=== PATIENT | female | born 1995 | race Caucasian/White ===

== ENCOUNTER 2019-11-24 13:06 | Inpatient (IN) ==
[2019-11-24] MEDS: RINGER'S SOLUTION,LACTATED 1,000 ML IV ONE (19:14)
[2019-11-24] MEDS ORDERED: LIDOCAINE HCL 50 ML VIAL PERI PRN (19:46)
[2019-11-24] MEDS ORDERED: RINGER'S SOLUTION,LACTATED 1,000 ML IV PRN (19:46)
[2019-11-24] MEDS ORDERED: OXYTOCIN/DEXTROSE 5%-WATER 30 UNITS/500 ML BAG IV ONE (19:46)
[2019-11-24] MEDS ORDERED: ONDANSETRON 4 MG TAB.RAPDIS PO PRN (19:46)
[2019-11-24] MEDS ORDERED: BUTORPHANOL TARTRATE 2 MG/ML VIAL IV PRN ×2 (19:46)
[2019-11-24] MEDS: MISOPROSTOL 100 MCG TABLET VG PRN (20:44)
[2019-11-24 21:31] LABS: Cocaine Ur Negative (NEGATIVE); Urine Barbiturate Negative (NEGATIVE); Urine Benzodiazepines Negative (NEGATIVE); Urine Opiates Negative (NEGATIVE); Urine PCP Negative (NEGATIVE); Urine THC Positive (NEGATIVE)
--- NOTE | 2019-11-25 08:38 | HP ---
Chief Complaint - Chief Complaint Date of Service: 11/25/19 Time of Service: 08:37 Chief Complaint: Patient presents for elective IOL and has no complaints History of Present Illness: 24 year old Medical History (Last Reviewed 11/25/19 @ 13:12 by Monik Machado MD) Acquired hypertrophic pyloric stenosis Onset Date: Unknown UTI (urinary tract infection) Onset Date: Unknown Surgical History: Surgical History (Last Reviewed 11/25/19 @ 13:12 by Monik Machado MD) H/O hand surgery Onset Date: ~2011 broken hand S/P pyloromyotomy, follow-up exam Onset Date: Unknown - surgery for pyloric stenosis Family History: Family History (Last Reviewed 11/25/19 @ 13:12 by Monik Machado MD) Mother Diabetes Primary stomach malignancy Hypertension Father Alive and well Social History: (Last Reviewed 11/25/19 @ 13:12 by Monik Machado MD) Social History: Marital status: Single current occupational status: employed current occupation: information security manager Highest education level completed: high school graduate Service: No Tobacco: Smoking Status: Current every day smoker tobacco type: cigarettes Smoking cigarettes per day: 5 Alcohol: alcohol intake: never Substance Use: substance use type: does not use Dietary Habits: caffeine: Yes caffeine comment: daily Type: carbonated beverages Exercise: Physical activity type: other frequency: 3-4 times per week Review Of Systems (GEN) - Review of Systems Generalized/Overall Review: Present: No Symptoms Reported Misc: All systems neg except as marked Immunizations: IMMUNIZATION HX Immunizations Up to Date Yes History of Influenza Vaccine Yes Hx Pneumococcal Vaccination No Allergies/Adverse Reactions: Allergies Allergy/AdvReac Type Severity Reaction Status Date / Time No Known Drug Allergies Allergy Severe Verified 11/24/19 20:00 poison mary extract Allergy Severe rash, Verified 11/24/19 20:00 [Poison Mary Extract] itching Home Medications: HOME MEDICATIONS prenat.vits,lorena,[id number] 1 tab PO DAILY 04/17/19 [Last Taken Unknown] Exam - Exam Vital Signs: Vital Signs - Last Taken Temp 36.7 C 11/24/19 18:45 Pulse 96 11/24/19 18:45 Resp 16 11/24/19 18:45 BP 119/64 11/24/19 18:45 Pulse Ox 97 11/24/19 18:45 Constitutional: Present: Alert, Oriented x3, Cooperative, No distress ENT Exam: Present: hearing grossly normal Neck: Present: normal inspection Back Exam: Present: normal inspection Respiratory: Present: lungs clear, normal breath sounds, no respiratory distress Cardiovascular/Chest: Present: regular rate, rhythm Abdomen: Present: soft, nontender, nondistended /Rectal: Present: Other - fingertip Extremity: Present: non-tender, no calf tenderness Skin Exam: Present: normal color, warm/dry, no cyanosis Neurologic: Present: alert, normal mood/affect, oriented x 3 Appearance: Present: appropriate appearance Eye contact: Present: cooperative, good eye contact, normal speech Thoughts: Present: normal thought pattern Diagnostic Studies: Abnormal Lab Results 11/24/19 Range/Units 20:45 Urine Marijuana (THC) Positive H (NEGATIVE) Laboratory Results Urine Opiates Screen Negative (NEGATIVE) 11/24/19 20:45 Barbiturate Screen Negative (NEGATIVE) 11/24/19 20:45 Ur Phencyclidine Scrn Negative (NEGATIVE) 11/24/19 20:45 Urine Amphetamine Negative (NEGATIVE) 11/24/19 20:45 U Benzodiazepines Scrn Negative (NEGATIVE) 11/24/19 20:45 Urine Cocaine Screen Negative (NEGATIVE) 11/24/19 20:45 Urine Marijuana (THC) Positive (NEGATIVE) H 11/24/19 20:45 Blood Type A Positive 11/24/19 19:55 Antibody Screen Negative 11/24/19 19:55 Assessment/Plan - Narrative Narrative: 24 year old year old at 39w 1d Elective IOL: the patient received one dose of misprostol and on examination this morning the patient was fingertip. Pitocin was at 10 milliunits. Pitocin turned off due to cervix not being favorable. A second dose of cytotec was given. FHT was reactive, moderate variability, normal baseline, no decelerations CF carrier: FOB tested and negative GBS negative: prophylaxis not indicated THC use in : positive on admission to L&D Smoker
[2019-11-25] MEDS ORDERED: MISOPROSTOL 100 MCG TABLET VG SCH (09:30)
[2019-11-25] MEDS: MISOPROSTOL 100 MCG TABLET VG PRN (09:41)
--- NOTE | 2019-11-25 16:52 | PN ---
Progess Note - Interim Date: 11/25/19 Time: 16:51 Narrative: 11/25/19 16:51 The patient reports she is starting to feel her contractions more cvx 2/60/-3 AROM for clear fluid FHT normal baseline, accelerations (reactive), moderate variability, no decelerations Desires epidural ctx q 1-3 minutes Epidural PRN
[2019-11-25] MEDS ORDERED: ONDANSETRON HCL/PF 2 MG/ML VIAL IV PRN (17:32)
[2019-11-25] MEDS ORDERED: BUPIVACAINE HCL/0.9 % NACL/PF 250 ML EP PRN (17:32)
[2019-11-25] MEDS ORDERED: NALOXONE HCL 1 MG/1 ML SYRG IV PRN (17:32)
[2019-11-25] MEDS ORDERED: BUPIVACAINE HCL/PF 30 ML VIAL EP SCH (17:45)
[2019-11-25] MEDS: RINGER'S SOLUTION,LACTATED 1,000 ML IV ONE (18:56)
--- NOTE | 2019-11-25 19:25 | ANES ---
Anesthesia Pre Procedure Eval Vitals/Labs: Last Vital Signs Temp 36.7 C 11/24/19 18:45 Pulse 96 11/24/19 18:45 Resp 16 11/24/19 18:45 BP 119/64 11/24/19 18:45 Pulse Ox 97 11/24/19 18:45 HOME MEDICATIONS prenat.vits,lorena,[id number] 1 tab PO DAILY 04/17/19 [Last Taken Unknown] Allergies/Adverse Reactions: Allergies Allergy/AdvReac Type Severity Reaction Status Date / Time No Known Drug Allergies Allergy Severe Verified 11/24/19 20:00 poison mary extract Allergy Severe rash, Verified 11/24/19 20:00 [Poison Mary Extract] itching - Planned Procedure Planned Procedure: Labor Epidural Medication List Reviewed:: Yes Allergies Verified: Yes Medical History (Last Reviewed 11/25/19 @ 19:25 by Ahmet Gentile CRNA) Acquired hypertrophic pyloric stenosis Onset Date: Unknown UTI (urinary tract infection) Onset Date: Unknown Surgical History (Last Reviewed 11/25/19 @ 19:25 by Ahmet Gentile CRNA) H/O hand surgery Onset Date: ~2011 broken hand S/P pyloromyotomy, follow-up exam Onset Date: Unknown - surgery for pyloric stenosis Family History (Last Reviewed 11/25/19 @ 19:25 by Ahmet Gentile CRNA) Mother Diabetes Primary stomach malignancy Hypertension Father Alive and well - Cardiovascular Tolerate Activity: Good Heart Sounds: S1 & S2, Regular - Anesthesia Assessment and Plan ASA Class: PS, II Anesthesia Type Plan: Epidural
--- NOTE | 2019-11-25 19:46 | ANES ---
Post Anesthesia Assessment - Vital Signs Vitals: Last Vital Signs Temp 36.7 C 11/24/19 18:45 Pulse 96 11/24/19 18:45 Resp 16 11/24/19 18:45 BP 119/64 11/24/19 18:45 Pulse Ox 97 11/24/19 18:45 Airway Patency: Normal - Mental Status Level Of Consciousness: Awake - N/V Assessment Nausea/Vomiting Presence: None Dehydration:: No
--- NOTE | 2019-11-25 19:46 | ANES ---
Anesthesia Procedure Note Procedure Note: ANESTHESIA PROCEDURE NOTE Date of Procedure: 11/25/2019. Time of procedure: 1929. Performed by: Ahmet Gentile CRNA Internet Ecommerce Specialist: None. Preprocedure diagnosis: Active labor. Post procedure diagnosis: Same. Procedure: Insertion of labor epidural. Indications: The patient is a 24-year-old female in active labor requesting labor epidural for pain management. Findings: See below. Details of the procedure: The patient was placed in a sitting position. DuraPrep as well as Betadine swabs X3 was applied to the patient's back. Patient was then draped in a sterile fashion. Lidocaine 1% was infiltrated to the skin and subcutaneous tissues at the level of the L3-4 interspace. The epidural space was identified using a 18-gauge Tuohy needle with [id number] technique. Epidural catheter was inserted to a depth of 10 centimeters at skin. Negative test dose was elicited using 3 mL of 1.5% preservative-free lidocaine plus epinephrine 1 200,000. The epidural catheter was then taped and secured in place. A loading dose of 8 mL of 0.25% preservative-free bupivacaine was administered to the epidural catheter after negative aspiration for blood and CSF. EBL: Minimal. Fluids: N/A. Specimen: N/A. Post procedure condition: The patient tolerated the procedure well. No complications were noted. Thank you for this consultation. Ahmet Gentile CRNA
[2019-11-26] MEDS ORDERED: SENNOSIDES 8.6 MG TABLET PO PRN (00:11)
[2019-11-26] MEDS ORDERED: BENZOCAINE/MENTHOL 81 SPRAY CAN TP PRN (00:11)
[2019-11-26] MEDS ORDERED: HYDROCORTISONE 30 APPL TUBE TP PRN (00:11)
[2019-11-26] MEDS ORDERED: BISACODYL 10 MG SUPP.RECT RC PRN (00:11)
[2019-11-26] MEDS ORDERED: HYDROcodone/ACETAMINOPHEN 1 EACH TABLET PO PRN (00:11)
[2019-11-26] MEDS ORDERED: OXYTOCIN/0.9 % SODIUM CHLORIDE 30 UNITS/500 ML BAG IV ONE (00:11)
[2019-11-26] MEDS ORDERED: diphenhydrAMINE HCL 25 MG CAPSULE PO PRN (00:11)
[2019-11-26] MEDS ORDERED: GLYCERIN/WITCH HAZEL LEAF 40 APPL BOX TP PRN (00:11)
--- NOTE | 2019-11-26 00:11 | OR ---
Operative Report - Dictated Report Narrative: Date of delivery: 11/25/2019 Time of delivery: 2353 Gender: female weight: 3107 grams APGARS: 9/ Procedure: Description of the procedure: The patient is a 24 year old at 39w1d who presented to L&D for an elective IOL. She received two doses of cytotec followed by pitocin administration and AROM. She progressed to complete dilation. She delivered a viable female infant in RORO presentation with hand presentation as well so this was a compound presentation. A tight nuchal cord was noted and thus it was cut at the perineum. The shoulders delivered without any difficulty followed by the rest of the . Terminal meconium was noted. Cord blood was collected. The placenta was delivered by expression and appeared intact. There were no lacerations. EBL: 100 mL Complications: none Specimens: none History for MU Definition: * The number of deliveries resulting in a live the patient experienced prior to current hospitalization * The previous delivery of live twins or any live multiple gestation is considered one live event. *If primagravida or nulliparous is documented select zero for the number of previous live births. Live Events: 1
[2019-11-26] MEDS: IBUPROFEN 800 MG TABLET PO PRN ×3 (01:04→21:07)
[2019-11-26] MEDS: HYDROcodone/ACETAMINOPHEN 1 EACH TABLET PO PRN ×2 (04:02→10:38)
[2019-11-26] MEDS: DOCUSATE SODIUM 100 MG CAPSULE PO SCH ×2 (08:39→21:07)
--- NOTE | 2019-11-26 16:16 | PN ---
Subjective - Date and Time Seen Date: 11/26/19 Time: 16:14 Subjective Narrative: Patient without complaints Objective Objective Narrative: See vital signs - Review of Systems Generalized/Overall Review: Reports: No Symptoms Reported Misc: All systems neg except as marked - Vitals Vitals: Last Vital Signs Temp 37 C 11/26/19 13:10 Pulse 64 11/26/19 13:10 Resp 18 11/26/19 13:10 BP 135/81 11/26/19 13:10 Pulse Ox 99 11/26/19 13:10 - Exam Constitutional: Present: Alert, Oriented x3, Cooperative, No distress Abdomen: Present: soft, nontender, nondistended - fundus is firm Extremity: Present: non-tender, no calf tenderness Skin Exam: Present: normal color, warm/dry, no cyanosis Appearance: Present: appropriate appearance, appropriate insight, neat, no memory impairment Eye contact: Present: cooperative, good eye contact, normal speech Thoughts: Present: normal thought pattern Cauti Physician Documentation - Urinary Catheter Management Urethral (Prince) Urethral Indwelling: No Date of Insertion: 11/25/19 Time of Insertion: 20:15 Assessment/Plan Plan Narrative: PPD 1 s/p Doing well Discharge tomorrow Desires Nexplanon for contraception
--- NOTE | 2019-11-27 08:33 | PN ---
Subjective - Date and Time Seen Date: 11/27/19 Time: 08:31 Subjective Narrative: Patient without complaints Objective Objective Narrative: See vital signs - Review of Systems Generalized/Overall Review: Reports: No Symptoms Reported Misc: All systems neg except as marked - Vitals Vitals: Last Vital Signs Temp 36.8 C 11/27/19 07:14 Pulse 76 11/27/19 07:14 Resp 16 11/27/19 07:14 BP 122/74 11/27/19 07:14 Pulse Ox 98 11/27/19 07:14 - Exam Constitutional: Present: Alert, Oriented x3, Cooperative, No distress ENT Exam: Present: hearing grossly normal Abdomen: Present: soft, nontender, nondistended - fundus is firm Extremity: Present: non-tender, no calf tenderness Skin Exam: Present: normal color, warm/dry, no cyanosis Neurologic: Present: alert, normal mood/affect, oriented x 3 Appearance: Present: appropriate appearance, appropriate insight, neat, no memory impairment Eye contact: Present: cooperative, good eye contact, normal speech Thoughts: Present: normal thought pattern Cauti Physician Documentation - Urinary Catheter Management Urethral (Prince) Urethral Indwelling: No Date of Insertion: 11/25/19 Time of Insertion: 20:15 Date of Removal: 11/25/19 Time of Removal: 23:35 Assessment/Plan Plan Narrative: PPD 2 s/p Doing well Discharge today Follow-up in 6 weeks or sooner for any other concerns
[2019-11-27] MEDS: DOCUSATE SODIUM 100 MG CAPSULE PO SCH (10:03)
[2019-11-27 13:53] VITALS: BP 112/79
== END 2019-11-27 12:45 | disposition home or self-care (01) | DRG 807 ==
LOC: OB 18:10
PROVIDERS: ADMIT Obstetrics & Gynecology; ATTEND Obstetrics & Gynecology